=== PATIENT | male | born 1985 | race Native Hawaiian/Other Pacific Islander ===

== ENCOUNTER 2023-01-10 05:57 | Emergency (ER) | payer OTHER, SELFPAY ==
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
[2023-01-10 06:08] VITALS: BP 140/85; PULSE 48; RESP 16; TEMP 36.8; O2SAT 98; BMI 27.4
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
[2023-01-10] MEDS: IBUPROFEN 400 MG TABLET 800 MG PO (06:29)
[2023-01-10] MEDS: TET,DIPH,PERTUSS(ACELL),VAC/PF 0.5 ML SYRINGE IM (06:30)
== END 2023-01-10 08:39 | disposition home or self-care (01) ==
PROVIDERS: Emergency Provider Emergency Medicine
DX: S62.614A Displaced fracture of proximal phalanx of right ring finger, initial encounter for closed fracture (principal); S62.616A Displaced fracture of proximal phalanx of right little finger, initial encounter for closed fracture; S60.511A Abrasion of right hand, initial encounter; S60.512A Abrasion of left hand, initial encounter; V89.2XXA Person injured in unspecified motor-vehicle accident, traffic, initial encounter; Z23 Encounter for immunization
CPT/HCPCS: 29125; 71046; 73110; 73130; 90471; 99284; 90715

== ENCOUNTER 2023-01-14 07:03 | Day surgery (SDC) | payer OTHER, SELFPAY ==
[2023-01-11 13:34] VITALS: BMI 27.4
[2023-01-14] VITALS (9 sets, daily range): BP systolic 119–146; BP diastolic 65–96; PULSE 47–82; RESP 12–17; TEMP 36.1–36.6; O2SAT 98–100; BMI 27.4
[2023-01-14] MEDS: LACTATED RINGERS 1,000 ML 42 ML IV ×2 (07:37→11:46)
--- NOTE | 2023-01-14 08:53 | PM.PREOP ---
Pre-operative Note Interval Note History & Physical reviewed/Exam performed by Physician: Yes Changes to H&P: No
[2023-01-14] MEDS: CEFAZOLIN 2 GM/100 ML PREMIX 100 ML IV (09:10)
--- NOTE | 2023-01-14 09:33 | SUR.OPER ---
Supine on padded OR bed, head on pillow, arms secured on padded arm boards at <90 degrees abduction, legs uncrossed, safety belt at thigh, tape over blanket over lower legs.
[2023-01-14] MEDS: BUPIVACAINE 0.25% (PF) 30 ML, EPINEPHrine 0.15 MG INJ (10:03)
[2023-01-14] MEDS: MORPHINE 10 MG/ML INJ IV (12:15)
[2023-01-14] MEDS: OXYCODONE/ACETAMINOPHEN 5/325 TABLET 1 TAB PO ×2 (12:24→12:27)
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
== END 2023-01-14 12:42 | disposition home or self-care (01) ==
PROVIDERS: Referring Provider Orthopaedic Surgery Foot and Ankle Surgery; Visit Provider Orthopaedic Surgery Foot and Ankle Surgery
PROC: (CPT 26746; principal; 2023-01-14 09:00)
DX: S62.614A Displaced fracture of proximal phalanx of right ring finger, initial encounter for closed fracture (principal); V89.2XXA Person injured in unspecified motor-vehicle accident, traffic, initial encounter; Y92.410 Unspecified street and highway as the place of occurrence of the external cause; Y99.0 Civilian activity done for income or pay
CPT/HCPCS: 26746; J0171; J0690; J2270; J2405; J2704; J3010

== ENCOUNTER 2023-05-06 12:22 | Day surgery (SDC) | payer OTHER, SELFPAY ==
[2023-04-28 14:21] VITALS: BMI 27.1
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
[2023-05-06] MEDS: LACTATED RINGERS 1,000 ML 42 ML IV (13:25)
[2023-05-06] MEDS: ACETAMINOPHEN 325 MG TABLET 975 MG PO (13:26)
[2023-05-06 13:41] VITALS: BMI 28.2
[2023-05-06 13:44] VITALS: BP 134/88; PULSE 62; RESP 16; TEMP 36.3; O2SAT 98
--- NOTE | 2023-05-06 14:32 | PM.PREOP ---
Pre-operative Note Interval Note History & Physical reviewed/Exam performed by Physician: Yes Changes to H&P: No
--- NOTE | 2023-05-06 14:33 | SUR.OPER ---
Supine on padded OR bed, head on pillow, left arm secured on padded arm board at <90 degrees abduction, right arm on hand table. legs uncrossed, safety belt at thigh, tape over blanket over lower legs.
[2023-05-06] MEDS: CEFAZOLIN 2 GM/100 ML PREMIX 100 ML IV (14:40)
--- NOTE | 2023-05-06 14:52 | SUR.OPER ---
Supine on padded OR bed, head on pillow, left arm secured on padded arm boards at <90 degrees abduction, right arm on hand table. legs uncrossed, safety belt at thigh, tape over blanket over lower legs.
[2023-05-06] MEDS: BUPIVACAINE 0.25% (PF) 30 ML, EPINEPHrine 0.15 MG INJ (15:01)
[2023-05-06 16:35] VITALS: BP 135/76; PULSE 67; RESP 14; TEMP 36.3; O2SAT 98
[2023-05-06 16:40] VITALS: BP 123/70; PULSE 61; RESP 13; O2SAT 98
[2023-05-06 16:45] VITALS: BP 124/84; PULSE 68; RESP 12; O2SAT 100
[2023-05-06 17:00] VITALS: BP 132/88; PULSE 70; RESP 12; O2SAT 100
[2023-05-06] MEDS: HYDROCODONE/ACET 5/325 TABLET 1 TAB PO (17:12)
[2023-05-06 17:15] VITALS: BP 138/79; PULSE 72; RESP 19; TEMP 36.2; O2SAT 100
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
== END 2023-05-06 17:15 | disposition home or self-care (01) ==
PROVIDERS: Referring Provider Orthopaedic Surgery Foot and Ankle Surgery; Visit Provider Orthopaedic Surgery Foot and Ankle Surgery
PROC: (CPT 26440; principal; 2023-05-06 14:15)
PROC: (CPT 26440; 2023-05-06 14:15)
DX: T84.84XA Pain due to internal orthopedic prosthetic devices, implants and grafts, initial encounter (principal); T84.210A Breakdown (mechanical) of internal fixation device of bones of hand and fingers, initial encounter; M25.641 Stiffness of right hand, not elsewhere classified; M65.9 Synovitis and tenosynovitis, unspecified; M19.041 Primary osteoarthritis, right hand
CPT/HCPCS: 26440 ×2; 20680; 73120; 76000; J0171; J0690; J1100; J2405; J3010